=== PATIENT | male | born 1945 | race African-American/Black ===

== ENCOUNTER 2017-10-31 11:25 | Emergency (ER) | payer MEDICARE, OTHER ==
[~2017-10-31] VITALS: Ht 182.9 cm; Wt 86.2 kg
[~2017-10-31 11:25] MED LIST: CALC-157 PO; CELE200C PO; CHOL100013 PO; CYCL-331 PO; FERR325T58 PO; LOSA1TAB2 PO; METF500T4 PO; MULT-208 PO; SITA100T PO; TRAM-48 PO
[2017-10-31] MEDS ORDERED: MECL25TA3 PO (12:24)
--- NOTE | 2017-10-31 12:25 | PHYS DOC ---
Past History Past Medical History: Cancer, Diabetes, Hypertension Past Surgical History: Other Alcohol Use: None Drug Use: None Adult General Chief Complaint Chief Complaint: DIZZY/LIGHT HEADED HPI HPI Patient is a 72 year old M who presents with vertigo over the past 3-4 days. His symptoms are worse when he moves his head quickly and improved with rest. He also feels that his symptoms are improved with meclizine. He has had previous episodes similar to this approximately every 6-7 years. He did have the flu approximately 3 weeks ago. He has no other associated symptoms at this time. He has no other exacerbating or alleviating factors. Review of Systems Review of Systems Constitutional: Denies fever or chills [] Eyes: Denies change in visual acuity, redness, or eye pain [] HENT: Denies nasal congestion or sore throat [] Respiratory: Denies cough or shortness of breath [] Cardiovascular: No additional information not addressed in HPI [] GI: Denies abdominal pain, nausea, vomiting, bloody stools or diarrhea [] : Denies dysuria or hematuria [] Musculoskeletal: Denies back pain or joint pain [] Integument: Denies rash or skin lesions [] Neurologic: Denies headache, focal weakness or sensory changes [] Endocrine: Denies polyuria or polydipsia [] All other systems were reviewed and found to be within normal limits, except as documented in this note. Family History Family History No pertinent family medical history reported Current Medications Current Medications Current medications were reviewed Allergies Allergies Allergies Coded Allergies Type Severity Reaction Last Updated Verified No Known Drug Allergies 10/17/15 No Physical Exam Physical Exam Constitutional: Well developed, well nourished, no acute distress, non-toxic appearance. [] HENT: Normocephalic, atraumatic, bilateral external ears normal, oropharynx moist, no oral exudates, nose normal. [] Eyes: EOMI, conjunctiva normal, no discharge. [] Neck: Normal range of motion, no tenderness, supple, no stridor. [] Cardiovascular:Heart rate regular rhythm, Lungs & Thorax: Bilateral breath sounds clear to auscultation [] Abdomen: Bowel sounds normal, soft, no tenderness, no masses, no pulsatile masses. [] Skin: Warm, dry, no erythema, no rash. [] Extremities: No tenderness, no cyanosis, no clubbing, ROM intact, no edema. [] Neurologic: Alert and oriented X 3, normal motor function, normal sensory function, no focal deficits noted. [] Psychologic: Affect normal, judgement normal, mood normal. [] Current Patient Data Vital Signs Vital Signs Date Time Temp Pulse Resp B/P (MAP) Pulse Ox O2 Delivery O2 Flow Rate FiO2 10/31/17 11:30 97.9 79 16 100 Room Air EKG EKG [] Radiology/Procedures Radiology/Procedures [] Course & Med Decision Making Course & Med Decision Making Pertinent Labs and Imaging studies reviewed. (See chart for details) [] Dragon Disclaimer Dragon Disclaimer This electronic medical record was generated, in whole or in part, using a voice recognition dictation system. Departure Departure: Impression: Primary Impression: Vertigo Disposition: HOME, SELF-CARE Condition: STABLE Referrals: FRANKY HATCH MD (PCP) Patient Instructions: Benign Positional Vertigo, Vertigo Additional Instructions: Brien was seen in the emergency department for dizziness. No emergency medical condition was found on history or physical exam. His symptoms are most consistent with labyrinthitis however benign paroxysmal positional vertigo was considered. He was advised to use ibuprofen as needed as well as meclizine as needed for his dizziness. He is advised follow-up with his primary care doctor as needed. He was also advised return to the emergency room if he develops new or worsening symptoms. Scripts Meclizine Hcl (MECLIZINE HCL) 25 Mg Tablet 1 TAB PO PRN TID for DIZZINESS for 7 Days, #20 TAB Prov: FUNMILAYO HEATH MD 10/31/17 FUNMILAYO HEATH MD Oct 31, 2017 12:24
[2017-10-31 12:34] VITALS: BP 139/87
--- NOTE | 2017-10-31 13:48 | EKG ---
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
== END 2017-10-31 12:36 | disposition home or self-care (01) ==
LOC: ER 11:25
DX: R42 Dizziness and giddiness (principal); I10 Essential (primary) hypertension; E11.9 Type 2 diabetes mellitus without complications
CPT/HCPCS: 93005; 99283-25

== ENCOUNTER → 2018-05-30 | Outpatient (CLI) | payer MEDICARE, OTHER ==
[~2018-05-30] MED LIST changes: +MECL25TA3 PO; -METF500T4 PO; +METF500T5 PO
== END | disposition home or self-care (01) ==
LOC: LAB 14:17
PROVIDERS: ATTEND Urology
DX: Z12.5 Encounter for screening for malignant neoplasm of prostate (principal); I10 Essential (primary) hypertension; E11.9 Type 2 diabetes mellitus without complications
CPT/HCPCS: G0103

== ENCOUNTER 2018-10-13 16:24 | Emergency (ER) | payer OTHER, MEDICARE ==
[~2018-10-13] VITALS: Ht 182.9 cm; Wt 89.7 kg
[~2018-10-13 16:24] MED LIST changes: +METF500T16 PO; -METF500T5 PO
[2018-10-13 17:36] VITALS: BP 142/92
[2018-10-13] MEDS ORDERED: ORPH-16 PO (17:41)
[2018-10-13] MEDS ORDERED: DICL50TA4 PO (17:41)
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
== END 2018-10-13 17:55 | disposition home or self-care (01) ==
LOC: ER 16:24
DX: S16.1XXA Strain of muscle, fascia and tendon at neck level, initial encounter (principal); E11.9 Type 2 diabetes mellitus without complications; I10 Essential (primary) hypertension; V89.2XXA Person injured in unspecified motor-vehicle accident, traffic, initial encounter; Y93.89 Activity, other specified; Y92.488 Other paved roadways as the place of occurrence of the external cause; Y99.8 Other external cause status
CPT/HCPCS: 72040; 99283

== ENCOUNTER → 2018-12-05 | Outpatient (CLI) | payer MEDICARE, OTHER ==
[~2018-12-05] MED LIST changes: +DICL50TA4 PO; +ORPH-16 PO
== END | disposition home or self-care (01) ==
LOC: LAB 10:30
PROVIDERS: ATTEND Urology
DX: C61 Malignant neoplasm of prostate (principal)
CPT/HCPCS: 84153; G0103

== ENCOUNTER → 2019-04-03 | Outpatient (CLI) | payer MEDICARE, OTHER | END | disposition home or self-care (01) | LOC: LAB 16:54 | PROVIDERS: ATTEND Urology | DX: Z12.5 Encounter for screening for malignant neoplasm of prostate (principal) | CPT/HCPCS: G0103 ==

== ENCOUNTER → 2019-09-18 | Outpatient (CLI) | payer MEDICARE, OTHER | END | disposition home or self-care (01) | LOC: LAB 13:59 | PROVIDERS: ATTEND Urology | DX: C61 Malignant neoplasm of prostate (principal) | CPT/HCPCS: 84153; G0103 ==

== ENCOUNTER → 2020-06-17 | Outpatient (CLI) | payer MEDICARE, OTHER ==
[~2020-06-17] MED LIST changes: +MECL-75 PO; -MECL25TA3 PO
== END ==
LOC: LAB 15:00
PROVIDERS: ATTEND Urology
DX: R97.20 Elevated prostate specific antigen [PSA] (principal)
CPT/HCPCS: 84153; G0103

== ENCOUNTER 2020-07-26 15:49 | Emergency (ER) | payer MEDICARE, OTHER ==
[~2020-07-26] VITALS: Ht 182.9 cm; Wt 89.7 kg
--- NOTE | 2020-07-26 16:12 | PHYS DOC ---
Past History Past Medical History: Cancer, Diabetes, Hypertension Past Surgical History: Cancer Surgery, Other Alcohol Use: None Drug Use: None General Adult EDM: Chief Complaint: PAIN ON URINATION HPI: HPI: History obtained from the patient. Patient is a 75-year-old male with history of high blood pressure and prostatic cancer who presents with dysuria. Patient states he has had the symptoms for the past 2 days. He states that he has noticed intermittent blood in his urine as well. He states he has had urination that is been normal however. Denies any testicle pain. Denies abdominal pain. Denies any back pain. States he was on Bactrim approximately 1 month ago for swollen gland near his scrotum. He is unsure exactly what he was being treated for. He notes that he has history of bladder sling surgery several years ago. Denies allergies to antibiotics. Denies vomiting. Denies any objective fevers. Denies any penile discharge. Denies current sexual activity. States he has no pain related complaints other than some dysuria and intermittent hematuria. Denies any history of kidney stone. Review of Systems: Review of Systems: Constitutional: Denies fever or chills Eyes: Denies change in visual acuity HENT: Denies nasal congestion or sore throat Respiratory: Denies cough or shortness of breath Cardiovascular: Denies chest pain or edema GI: Denies abdominal pain, nausea, vomiting, bloody stools or diarrhea : Positive for dysuria and hematuria. Musculoskeletal: Denies back pain or joint pain Integument: Denies rash Neurologic: Denies headache, focal weakness or sensory changes Endocrine: Denies polyuria or polydipsia Lymphatic: Denies swollen glands Psychiatric: Denies depression or anxiety Heart Score: Risk Factors: Risk Factors: DM, Current or recent (<one month) smoker, HTN, HLP, family history of CAD, obesity. Risk Scores: Score 0 - 3: 2.5% MACE over next 6 weeks - Discharge Home Score 4 - 6: 20.3% MACE over next 6 weeks - Admit for Clinical Observation Score 7 - 10: 72.7% MACE over next 6 weeks - Early Invasive Strategies Allergies: Allergies: Allergies Coded Allergies Type Severity Reaction Last Updated Verified No Known Drug Allergies 10/17/15 No Physical Exam: PE: Constitutional: Well developed, well nourished, no acute distress, non-toxic appearance. [] HENT: Normocephalic, atraumatic, bilateral external ears normal, oropharynx moist, no oral exudates, nose normal. [] Eyes: PERRLA, EOMI, conjunctiva normal, no discharge. [] Neck: Normal range of motion, no tenderness, supple, no stridor. [] Cardiovascular:Heart rate regular rhythm, no murmur [] Lungs & Thorax: Bilateral breath sounds clear to auscultation [] Abdomen: Soft, nontender, nonacute abdomen. No involuntary guarding or rigidity noted. No acute peritonitis. : Uncircumcised. No signs of balanitis. Testicles without tenderness to palpation. 2, 2mm puncture appearing wounds to the medial aspect of the thighs bilaterally where it meets the scrotum. Consistent with post bladder sling surgery. No surrounding erythema. No purulent drainage noted. No palpable fluctuance. No crepitus noted. Skin: Warm, dry, no erythema, no rash. [] Back: No tenderness, no CVA tenderness. [] Extremities: No tenderness, no cyanosis, no clubbing, ROM intact, no edema. [] Neurologic: Alert and oriented X 3, normal motor function, normal sensory function, no focal deficits noted. [] Psychologic: Affect normal, judgement normal, mood normal. [] Current Patient Data: Labs: Laboratory Tests Test 07/26/20 16:01 07/26/20 16:45 Urine Collection Type Unknown Urine Color Yellow Urine Clarity Clear Urine pH 6.0 Urine Specific River >=1.030 Urine Protein Neg Urine Glucose (UA) Neg mg/dL Urine Ketones (Stick) Neg mg/dL Urine Blood Mod Urine Nitrite Neg Urine Bilirubin Neg Urine Urobilinogen Dipstick 0.2 mg/dL Urine Leukocyte Esterase Neg Urine RBC 20-40 /HPF Urine WBC 1-4 /HPF Urine Squamous Epithelial Cells None /LPF Urine Bacteria 0 /HPF White Blood Count 3.9 x10^3/uL Red Blood Count 4.14 x10^6/uL Hemoglobin 10.8 g/dL Hematocrit 34.1 % Mean Corpuscular Volume 83 fL Mean Corpuscular Hemoglobin 26 pg Mean Corpuscular Hemoglobin Concent 32 g/dL Red Cell Distribution Width 16.4 % Platelet Count 225 x10^3/uL Neutrophils (%) (Auto) 58 % Lymphocytes (%) (Auto) 28 % Monocytes (%) (Auto) 10 % Eosinophils (%) (Auto) 3 % Basophils (%) (Auto) 1 % Neutrophils # (Auto) 2.3 x10^3uL Lymphocytes # (Auto) 1.1 x10^3/uL Monocytes # (Auto) 0.4 x10^3/uL Eosinophils # (Auto) 0.1 x10^3/uL Basophils # (Auto) 0.1 x10^3/uL Sodium Level 140 mmol/L Potassium Level 4.2 mmol/L Chloride Level 105 mmol/L Carbon Dioxide Level 28 mmol/L Anion Gap 7 Blood Urea Nitrogen 23 mg/dL Creatinine 1.1 mg/dL Estimated GFR (Cockcroft-Gault) 79.0 Glucose Level 88 mg/dL Calcium Level 9.3 mg/dL EKG: EKG: [] Radiology/Procedures: Radiology/Procedures: [address] [address] IMAGING REPORT Signed PATIENT: JAVI STARKS ACCOUNT: [id number] : 1945 LOCATION: ER AGE: 75 SEX: M EXAM STATUS: REG ER ORD. PHYSICIAN: ALEN FELIX DO REASON: hematuria PROCEDURE: CT ABDOMEN PELVIS WO CONTRAST Exam: CT abdomen/pelvis without intravenous contrast Indication: Hematuria Comparison: None Technique: Helical CT imaging performed of the abdomen and pelvis without the use of intravenous contrast. Sagittal and coronal reformats were obtained. One or more of the following individualized dose reduction techniques were utilized for this examination: 1. Automated exposure control 2. Adjustment of the mA and/or kV according to patient size 3. Use of iterative reconstruction technique. Findings: Inherently limited evaluation without intravenous contrast. Lower chest: Lung bases are clear. The heart is normal in size. Liver: There multiple simple cysts in liver, the largest measuring 4 cm. The left hepatic lobe is small. Gallbladder/Biliary Tree: Normal. Pancreas: Normal. Spleen: Normal. Adrenal Glands: Normal. Kidneys/Ureters/Bladder: Kidneys are normal in size. There are 2 simple cysts in the superior left renal pole measuring up to 2 cm. There is bilateral nephrolithiasis with punctate calculi. Ureters are normal where visualized. There is masslike irregular bladder wall thickening on the right measuring approximately 2.8 x 2.0 cm. Additional bladder wall thickening anteriorly. There is mild fat stranding around the bladder. Reproductive Organs: There are calcifications in the prostate gland. Stomach, small bowel, and colon: Normal. Vasculature: Abdominal aorta is normal in caliber. Mild calcified aortoiliac atherosclerosis. Lymph Nodes: There is a 6 mm short axis right pelvic sidewall lymph node adjacent to the bladder (image 129, series 2) additional right pelvic sidewall lymph node measuring 4 mm short axis (image 133, series 2) Peritoneum and retroperitoneum: No free fluid or free air. Bones: There is surgical changes of posterior decompression and fusion at L4-L5. Moderate to severe degenerative disc disease throughout the lumbar spine. There is thoracolumbar scoliosis. Old bilateral inferior pubic rami fractures. Miscellaneous: There is heterotopic ossification in the right rectus femoris muscle. Impression: 1. Irregular masslike bladder wall thickening with surrounding fat stranding. This is concerning for malignancy although cystitis is also possible. Recommend CT with and without contrast with delayed phase imaging to further evaluate. 2. There are 2 prominent right pelvic sidewall lymph nodes adjacent the bladder. 3. Bilateral nephrolithiasis with punctate calculi. Electronically signed by: Nkechi Schulz MD (07/26/2020 5:24 PM) [id number] DICTATED AND SIGNED BY: NKECHI SCHULZ MD DATE: 07/26/201723 CC: FRANKY HATCH MD; ALEN FELIX DO ~ [] Course & Med Decision Making: Course & Med Decision Making Pertinent Labs and Imaging studies reviewed. (See chart for details) [] Patient is a well-appearing 75-year-old male who presents with chief complaint of some dysuria and blood in his urine. He denies any pain whatsoever including abdominal or back pain. He states he has no difficulty in urination. Initial vital signs unremarkable. Urinalysis does show some hematuria but no signs of infection. Antibiotics will be deferred. Basic labs were obtained were grossly unremarkable. Kidney function normal. Hemoglobin 10.8. I did discuss results of labs and imaging in great detail with the patient. He states that he has been diagnosed with prostatic cancer and is status post pr ostatectomy. He notes that he was instructed by his urologist to follow-up with an oncologist. I did instruct him to continue to follow-up with his urologist regarding her abnormal CT findings. No emergent indication for hospitalization at this point. Return precautions were discussed and understood. Patient states he will follow-up with his urologist in the near future. Instructed to follow-up with his primary care physician the next 2 to 3 days. Usha Disclaimer: Draganahi Disclaimer: This electronic medical record was generated, in whole or in part, using a voice recognition dictation system. Departure Departure: Impression: Primary Impression: Hematuria Qualified Codes: R31.9 - Hematuria, unspecified Additional Impression: Mass of urinary bladder Disposition: HOME/RESIDENCE PRIOR TO ADM Condition: STABLE Referrals: FRANKY HATCH MD (PCP) TIMI FREITAS MD Patient Instructions: Prostate Cancer Additional Instructions: Please follow-up with your urologist this week. ALEN FELIX DO Jul 26, 2020 16:12
[2020-07-26 16:20] VITALS: BP 136/73
[2020-07-26 16:31] LABS: BILIRUBIN,URINE NEG (NEG); CLARITY,URINE CLEAR; COLOR,URINE YELLOW; GLUCOSE,URINE NEG (NEG); NITRITE,URINE NEG (NEG); UROBILINOGEN,URINE 0.2 mg/dL (0.2 mg/dL)
[2020-07-26 16:32] LABS: BACTERIA,URINE 0 /HPF (0-FEW); RBC,URINE 20-40 /HPF (0-2)
[2020-07-26 17:09] LABS: BASO # 0.1 x10^3/uL (0.0-0.2); BASO % 1 % (0-3); EOS # 0.1 x10^3/uL (0.0-0.7); EOS % 3 % (0-3); HEMATOCRIT 34.1 % (39.0-53.0); HEMOGLOBIN 10.8 g/dL (13.0-17.5); LYMPH # 1.1 x10^3/uL (1.0-4.8); LYMPH % 28 % (24-48); MEAN CORPUSCULAR HEMOGLOBIN 26 pg (25-35); MEAN CORPUSCULAR HGB CONC 32 g/dL (31-37); MEAN CORPUSCULAR VOLUME 83 fL (79-100); MONO # 0.4 x10^3/uL (0.0-1.1); MONO % 10 % (0-9); NEUT # 2.3 x10^3uL (1.8-7.7); NEUT % 58 % (31-73); PLATELET COUNT 225 x10^3/uL (140-400); RED BLOOD COUNT 4.14 x10^6/uL (4.30-5.70); RED CELL DISTRIBUTION WIDTH 16.4 % (11.5-14.5); WHITE BLOOD COUNT 3.9 x10^3/uL (4.0-11.0)
[2020-07-26 17:15] LABS: CALCIUM 9.3 mg/dL (8.5-10.1); CREATININE 1.1 mg/dL (0.7-1.3); POTASSIUM 4.2 mmol/L (3.5-5.1)
--- NOTE | 2020-07-26 17:27 | RAD ---
Exam: CT abdomen/pelvis without intravenous contrast Indication: Hematuria Comparison: None Technique: Helical CT imaging performed of the abdomen and pelvis without the use of intravenous contrast. Sagittal and coronal reformats were obtained. One or more of the following individualized dose reduction techniques were utilized for this examination: 1. Automated exposure control 2. Adjustment of the mA and/or kV according to patient size 3. Use of iterative reconstruction technique. Findings: Inherently limited evaluation without intravenous contrast. Lower chest: Lung bases are clear. The heart is normal in size. Liver: There multiple simple cysts in liver, the largest measuring 4 cm. The left hepatic lobe is small. Gallbladder/Biliary Tree: Normal. Pancreas: Normal. Spleen: Normal. Adrenal Glands: Normal. Kidneys/Ureters/Bladder: Kidneys are normal in size. There are 2 simple cysts in the superior left renal pole measuring up to 2 cm. There is bilateral nephrolithiasis with punctate calculi. Ureters are normal where visualized. There is masslike irregular bladder wall thickening on the right measuring approximately 2.8 x 2.0 cm. Additional bladder wall thickening anteriorly. There is mild fat stranding around the bladder. Reproductive Organs: There are calcifications in the prostate gland. Stomach, small bowel, and colon: Normal. Vasculature: Abdominal aorta is normal in caliber. Mild calcified aortoiliac atherosclerosis. Lymph Nodes: There is a 6 mm short axis right pelvic sidewall lymph node adjacent to the bladder (image 129, series 2) additional right pelvic sidewall lymph node measuring 4 mm short axis (image 133, series 2) Peritoneum and retroperitoneum: No free fluid or free air. Bones: There is surgical changes of posterior decompression and fusion at L4-L5. Moderate to severe degenerative disc disease throughout the lumbar spine. There is thoracolumbar scoliosis. Old bilateral inferior pubic rami fractures. Miscellaneous: There is heterotopic ossification in the right rectus femoris muscle. Impression: 1. Irregular masslike bladder wall thickening with surrounding fat stranding. This is concerning for malignancy although cystitis is also possible. Recommend CT with and without contrast with delayed phase imaging to further evaluate. 2. There are 2 prominent right pelvic sidewall lymph nodes adjacent the bladder. 3. Bilateral nephrolithiasis with punctate calculi. Electronically signed by: Nkechi Schulz MD (07/26/2020 5:24 PM) [id number]
== END 2020-07-26 18:02 | disposition home or self-care (01) ==
LOC: ER 15:49
DX: R31.9 Hematuria, unspecified (principal); N32.89 Other specified disorders of bladder; E11.9 Type 2 diabetes mellitus without complications; I10 Essential (primary) hypertension; Z85.46 Personal history of malignant neoplasm of prostate
CPT/HCPCS: 36415; 74176; 80048; 81001; 85025; 99284

== ENCOUNTER → 2021-03-09 | Outpatient (CLI) | payer MEDICARE, OTHER ==
[2021-03-09 13:55] LABS: BILIRUBIN,URINE SMALL (NEG); CLARITY,URINE HAZY; COLOR,URINE YELLOW; GLUCOSE,URINE NEG (NEG)
[2021-03-09 13:56] LABS: NITRITE,URINE NEG (NEG); UROBILINOGEN,URINE 0.2 mg/dL (0.2 mg/dL)
[2021-03-09 13:58] LABS: BACTERIA,URINE FEW /HPF (0-FEW); WBC,URINE 20-40 /HPF (0-4)
== END ==
LOC: LAB 13:05
PROVIDERS: ATTEND Urology
DX: R30.0 Dysuria (principal)
CPT/HCPCS: 81001; 87086

== ENCOUNTER → 2021-08-31 | Outpatient (CLI) | payer MEDICARE, OTHER ==
[~2021-08-31] MED LIST changes: -CYCL-331 PO; +CYCL10TA19 PO
--- NOTE | 2021-08-31 10:23 | RAD ---
EXAM: CT Head without IV contrast CLINICAL HISTORY: Reason: MEMORY LOSS, TIA / Spl. Instructions: / History: COMPARISON: None. TECHNIQUE: Routine CT of the head without contrast. PQRS compliance statement - One or more of the following individualized dose reduction techniques wer e utilized for this study: 1. Automated exposure control 2. Adjustment of the mA and/or kV according to patient size 3. Use of iterative reconstruction technique FINDINGS: There is no evidence of hemorrhage, mass or extra-axial fluid collection. Vergara-white differentiation is maintained with no evidence of edema. Subcortical and periventricular w tommie matter foci of hypoattenuation likely changes of chronic small vessel disease. There is no mass effect or shift of the intracranial structures. The ventricles, basilar cisterns and cortical sulci are normal in size and configuration for the [place] ents stated age. The cerebellum and brainstem are unremarkable. The calvarium demonstrates no evidence of fracture or focal lesion. There is normal aeration of the visualized paranasal sinuses and mastoid air cells. The visualized portions of the orbits are normal. IMPRESSION: 1. No evidence for acute intracranial process. 2. White matter changes likely chronic small vessel disease. Electronically signed by: Del Ellis MD (08/31/2021 10:21 AM) [id number]
== END ==
LOC: CT 09:58
PROVIDERS: ATTEND Family Medicine
DX: G93.89 Other specified disorders of brain (principal); R41.3 Other amnesia; G45.9 Transient cerebral ischemic attack, unspecified
CPT/HCPCS: 70450

== ENCOUNTER → 2021-09-29 | Outpatient (CLI) | payer MEDICARE, OTHER ==
[2021-09-29 15:46] LABS: BACTERIA,URINE FEW /HPF (0-FEW); BILIRUBIN,URINE NEG (NEG); CLARITY,URINE CLOUDY; COLOR,URINE YELLOW; GLUCOSE,URINE NEG (NEG); NITRITE,URINE NEG (NEG); SQUAMOUS EPITHELIAL CELL,UR OCC /LPF; UROBILINOGEN,URINE 0.2 mg/dL (0.2 mg/dL); WBC,URINE >40 /HPF (0-4)
== END ==
LOC: LAB 14:37
PROVIDERS: ATTEND Urology
DX: R30.0 Dysuria (principal)
CPT/HCPCS: 81001; 87077; 87086; 87186

== ENCOUNTER → 2021-11-19 | Outpatient (CLI) | payer MEDICARE, OTHER ==
[~2021-11-19] MED LIST changes: +IOHEXOL 300 MG/ML 75 ML VIAL. IV ONE
[2021-11-19 10:24] LABS: CREATININE 1.1 mg/dL (0.7-1.3); GFR 78.7
--- NOTE | 2021-11-19 11:57 | RAD ---
EXAM: Abdomen and pelvis CT without and with intravenous contrast. HISTORY: Hematuria. TECHNIQUE: Computed tomographic images of the abdomen and pelvis were obtained without and with contr ast. Multiplanar reformatting was performed. *One or more of the following individualized dose reduction techniques were utilized for this examina tion: 1. Automated exposure control. 2. Adjustment of the mA and/or kV according to patient size. 3. Use of iterative reconstruction technique. COMPARISON: 07/26/2020. FINDINGS: Evaluation of the lower thorax demonstrates basilar atelectasis. There is no infiltrate or pleural effusion. There is cardiomegaly. There is calcification of the aortic valve. There is calcifi ed atherosclerotic plaque involving the coronary arteries. There is a tortuous thoracic aorta. There is a tiny hiatal hernia. There are a few liver granulomas. There are hepatic cysts, the largest of which measures 4.3 cm. Ther e are few small hypodense lesions within the liver which are too small to characterize. These are als o likely cystic. The gallbladder and pancreas are unremarkable. The spleen is upper normal in size. T here is a 2.5 cm left adrenal nodule with macroscopic fat, likely an adrenal myelolipoma. There is al so a 1.6 cm hypodense right adrenal lesion likely due to an adenoma. There are a few nonobstructing renal stones measuring up to 1 mm. There is no evidence of a ureteral stone or hydronephrosis. There is renal cortical lobulation likely due to scarring. There are small s imple appearing renal cysts, largest of which measures 2.6 cm within the upper pole of the left kidne y. There is no convincing solid renal lesion. There is no appendicitis. There is no bowel obstruction. There is no abnormal bowel wall thickening. There is slight asymmetric bladder wall thickening along the right posterior lateral bladder centered at the right ureterovesical junction. There is slight surrounding fatty stranding. There is aortic and aortic branch vessel atherosclerosis. There is no aneurysm. No pathologically enl arged lymph node is seen. There is increased rectal wall fat, a finding which can be seen as a sequel a of prior inflammation. There is heterotopic ossification along the anterior right thigh soft tissue s. The prostate is absent. There is instrumented posterior spinal fusion and disc space fusion device placement at L4-L5. There is multilevel degenerative change throughout the spine. There is scoliosis and multilevel listhesis. There is no acute osseous finding. IMPRESSION: 1. Bladder wall thickening and slight surrounding inflammatory stranding. This appears to thickest wi thin the right posterior lateral bladder in the region of the right uterovesical junction. Correlate with urinalysis and possible cystoscopy to exclude cystitis or bladder neoplasm. The previously descr ibed adjacent prominent right pelvic lymph nodes are not considered specific is on the current exam. 2. Multiple simple appearing renal cysts. Follow-up is not routinely performed for simple cysts. 3. Multiple simple appearing hepatic cysts. 4. Stable 2.5 cm suspected left adrenal myelolipoma and 1.6 cm suspected right adrenal adenoma. This can be confirmed with MRI if there is clinical concern. 5. Punctate nonobstructing renal stones. There is no hydronephrosis. 6. Mild increased rectal wall mural fat, possibly due to the sequela prior inflammation. Electronically signed by: Jasmyn Ravi MD (11/19/2021 11:55 AM) [id number]
== END ==
LOC: CT 09:50
PROVIDERS: ATTEND Urology
DX: N20.0 Calculus of kidney (principal); N28.1 Cyst of kidney, acquired; N32.89 Other specified disorders of bladder; K76.89 Other specified diseases of liver; J98.11 Atelectasis; I51.7 Cardiomegaly; I70.0 Atherosclerosis of aorta; I25.10 Atherosclerotic heart disease of native coronary artery without angina pectoris; Q25.46 Tortuous aortic arch; K44.9 Diaphragmatic hernia without obstruction or gangrene; K75.3 Granulomatous hepatitis, not elsewhere classified; E27.8 Other specified disorders of adrenal gland; M43.16 Spondylolisthesis, lumbar region; M41.86 Other forms of scoliosis, lumbar region
CPT/HCPCS: 36415; 74178; 82565; 84520; Q9967

== ENCOUNTER → 2022-02-14 | Outpatient (CLI) | payer MEDICARE, OTHER ==
[~2022-02-14] MED LIST changes: -IOHEXOL 300 MG/ML 75 ML VIAL. IV ONE
[2022-02-14 13:28] LABS: BACTERIA,URINE FEW /HPF (0-FEW); CLARITY,URINE HAZY; COLOR,URINE YELLOW; GLUCOSE,URINE NEG (NEG); NITRITE,URINE NEG (NEG); SQUAMOUS EPITHELIAL CELL,UR OCC /LPF; UROBILINOGEN,URINE 0.2 mg/dL (0.2 mg/dL)
== END ==
LOC: LAB 12:42
PROVIDERS: ATTEND Urology
DX: N39.0 Urinary tract infection, site not specified (principal)
CPT/HCPCS: 81001; 87086